=== PATIENT | female | born 1990 | race Caucasian/White ===

== ENCOUNTER 2018-12-30 11:19 | Emergency (ER) | payer MEDICAID ==
[~2018-12-30] VITALS: Ht 167.6 cm; Wt 103.0 kg
[2018-12-30 11:20] VITALS: BP 151/100
== END 2018-12-30 13:38 | disposition home or self-care (01) ==
LOC: ER 11:20
DX: N63.0 Unspecified lump in unspecified breast (principal)
CPT/HCPCS: 99281